=== PATIENT | female | born 1940 | race Caucasian/White ===

== ENCOUNTER 2023-09-13 11:17 | Outpatient (AMB) | payer MEDICARE, SELFPAY ==
--- NOTE | 2023-09-13 11:18 | A.OFFVISPN_ITS ---
Intake Intake Visit Reasons: breathing concerns Allergies No Known Allergies Allergy (Verified 05/05/21 18:06) [facility] Medical History (Updated 05/05/21 @ 18:08 by Jenelle Callejas MD) Hypovitaminosis D COPD (chronic obstructive pulmonary disease) Anxiety Surgical History History of cholecystectomy Family History Mother No problems noted. Father No problems noted. Social History Housing: Apartment Alcohol intake: never Patient Tobacco Use Status: Never used Tobacco Tobacco use type: Cigarette e-Cigarette/Vaping Use: Never Used Second Hand Smoke Exposure: No service: No Current occupational status: disabled Coding
--- NOTE | 2023-09-13 11:19 | MHC.PC.OV ---
Intake Visit Reasons: breathing concerns Intake Note: Telehealth appt for medication review, breathing concerns Director Regulatory Affairs Required: No Accompanied by: Self / Same As Patient Allergies No Known Allergies Allergy (Verified 09/13/23 11:21) Medication List - Last Reconciled 09/13/23 by Jenelle Callejas MD albuterol sulfate 90 mcg/actuation (Ventolin HFA) 2 puffs PO Q6H PRN 30 days albuterol sulfate 90 mcg/actuation 1 inh inhalation QID 30 days NS cholecalciferol (vitamin D3) 25 mcg PO DAILY 90 days citalopram 10 mg PO DAILY 2 months fluticasone furoate-vilanterol 100-25 mcg/dose (Breo Ellipta) 1 ea PO DAILY Tobacco use date assessed: 09/13/23 Fall risk assessment: No Falls in past year Last assessed Fall Risk: 09/13/23 Dental Screening Dental Screen Date: 09/13/23 Did you have a dental visit in the last 12 months?: No Did you have a dental problem in the last 6 months where you did not have access to dental care?: No Was dental information given to patient?: Patient declined HPI HPI Comments History of Present Illness Details This is a 89-year-old female with COPD, anxiety and low vitamin-D that has telehealth visit by phone for follow-up on her conditions. COPD has been stable and use rescue inhaler 1 to 2 times a month. Anxiety well controlled with citalopram. Vitamin-D supplements for low vitamin-D. No chest pain or shortness of breath. [facility] Medical History Hypovitaminosis D COPD (chronic obstructive pulmonary disease) Anxiety Surgical History History of cholecystectomy Family History Mother No problems noted. Father No problems noted. Social History Housing: Apartment Alcohol intake: never Patient Tobacco Use Status: Never used Tobacco Tobacco use type: Cigarette e-Cigarette/Vaping Use: Never Used Second Hand Smoke Exposure: No service: No Current occupational status: disabled Cognitive needs: Yes Hearing needs: No Vision needs: No Questionnaire PHQ-9 Over the last 2 weeks, how often have you been bothered by any of the following problems? 1. Little interest or pleasure in doing things: not at all 2. Feeling down, depressed, or hopeless: not at all 3. Trouble falling or staying asleep, or sleeping too much: not at all 4. Feeling tired or having little energy: not at all 5. Poor appetite or overeating: not at all 6. Feeling bad about yourself - or that you are a failure or have let yourself or your family down: not at all 7. Trouble concentrating on things, such as reading the newspaper or watching television: not at all 8. Moving or speaking so slowly that other people could have noticed. Or the opposite - being so fidgety or restless that you have been moving around a lot more than usual: not at all 9. Thoughts that you would be better off or of hurting yourself in some way: not at all Total score: 0 Depression Screening Interpretation: Negative Depression Screening Done: Yes 84125 - PHQ-9 Billing: Yes Source: Developed by Drs. Fermin James, Naz Pena, Bud Mittal and colleagues, with an educational sarbjit from [employer]. Thrive Questionnaire Date Thrive assessed: 09/13/23 I am a: Patient What is your living situation today?: I have a steady place to live Within the past 12 months, did the food you bought not last and you didn't have the money to get more?: Never true Within the past 12 months, did you worry whether your food would run out before you got money to buy more?: Never true Do you have trouble paying for medicines?: No Do you have trouble getting transportation to medical appointments?: No Do you have trouble paying your heating and electricity bill?: No Do you have trouble taking care of your child, family member or friend?: No Do you have trouble with day-to-day activities such as bathing, preparing meals, shopping, managing finances, etc.?: Yes Are you currently unemployed and looking for a job?: No Are you interested in more education?: No Please select the resources that you would like help with: None Currently or been in a relationship where the following occur: no concerns reported AUDIT C Alcohol Use Questionnaire (AUDIT-C) 1. How often do you have a drink containing alcohol?: Never Total Score: 0 FRANCISCO-7 AMB Questionnaire FRANCISCO-7 Date FRANCISCO - 7 assessed: 09/13/23 Feeling nervous, anxious, or on edge: 0 = Not at all Not being able to stop or control worryin = Not at all Worrying too much about different things: 0 = Not at all Trouble relaxin = Not at all Being so restless that it is hard to sit still: 0 = Not at all Becoming easily annoyed or irritable: 0 = Not at all Feeling afraid as if something awful might happen: 0 = Not at all Total FRANCISCO-7 score (0-4 normal; 5-9 mild; 10-14 moderate; 15-21 severe): 0 Source: Developed by Drs. Fermin James, Naz Pena, Bud Mittal and colleagues, with an educational sarbjit from [employer]. FRANCISCO-7 Assessment Billing FRANCISCO-7 Assessment Tool: FRANCISCO-7 Assessment 76228 Review of Systems Const All systems reviewed & are unremarkable except as noted in HPI and below Eyes Reports no additional complaints, Denies change in vision and Denies other visual disturbances Card Denies chest pain at rest, Denies chest pain with activity, Denies edema, Denies irregular heart rhythm, Denies claudication, Denies dyspnea, Denies dyspnea on exertion, Denies orthopnea, Denies paroxysmal nocturnal dyspnea and Denies slow heart rate Resp Denies cough, Denies dyspnea and Denies dyspnea on exertion GI Denies abdominal pain, Denies change in bowel habits, Denies excessive flatus, Denies nausea and Denies vomiting Denies urinary incontinence, Denies urinary hesitancy and Denies urinary urgency Musc Denies abnormal gait, Denies atrophy, Denies deformity and Denies limited range of motion Skin/Breast Denies bleeding lesions, Denies changing lesions and Denies rash Neuro Denies abnormal gait and Denies lack of coordination Physical exam (Primary Care) Tobacco/Smoking Status: Tobacco use Status Tobacco use date assessed 09/13/23 09/13/23 11:21 Patient Tobacco Use Status Never used Tobacco 09/13/23 11:21 Tobacco use type Cigarette 09/13/23 11:21 e-Cigarette/Vaping Use Never Used 09/13/23 11:21 PHQ-9: PHQ-9 Score PHQ-9: Total score 0 09/13/23 11:24 Depression Screening Interpretation: Negative Thrive Assessment: Date of Thrive Assessment Date Thrive assessed 09/13/23 09/13/23 11:21 Currently or been in a relationship where the following occur: no concerns reported Telehealth Telehealth Location of provider rendering services: practice address Location of patient: address on file Patient Identification confirmed using: Name, : Yes Telehealth method: voice only Patient verbally consented to treatment: Yes Patient verbally consented to billing insurance company: Yes Patient informed of any privacy concerns related to visit: Yes Minutes spent on Phone/Video with Pt.: 15 Assessment and Plan Assessment & Plan (1) COPD (chronic obstructive pulmonary disease): Code(s): J44.9 - Chronic obstructive pulmonary disease, unspecified Qualifiers: COPD type: unspecified COPD Qualified Code(s): J44.9 - Chronic obstructive pulmonary disease, unspecified Plan: Continue longstanding inhaler. Use rescue inhaler as needed. (2) Hypovitaminosis D: Code(s): E55.9 - Vitamin D deficiency, unspecified Plan: Continue vitamin-D supplement (3) Anxiety: Code(s): F41.9 - Anxiety disorder, unspecified Plan: Continue citalopram. Coding Level of Care Code Tele Est Pt Level 3 (49606) Diagnoses Chronic obstructive pulmonary disease, unspecified COPD type J44.9 COPD type: unspecified COPD Hypovitaminosis D E55.9 Anxiety F41.9 Additional Codes FRANCISCO-7 Assessment Billing - FRANCISCO-7 Assessment Tool: FRANCISCO-7 Assessment 81129 ([id number]) Time Spent (min) 15
== END 2023-09-13 16:03 | disposition home or self-care (01) ==
LOC: HO.HMGH 11:17
PROVIDERS: PCP Internal Medicine; Visit Provider Internal Medicine
DX: J44.9 Chronic obstructive pulmonary disease, unspecified (principal); E55.9 Vitamin D deficiency, unspecified; F41.9 Anxiety disorder, unspecified
CPT/HCPCS: 99442

== ENCOUNTER 2024-12-18 14:16 | Inpatient (IN) | payer MEDICARE, SELFPAY ==
--- NOTE | ~2024-12-18 | CT_ITS ---
CLINICAL HISTORY: mental satus changes CT head without contrast Comparison: None Findings: No intra-axial mass, midline shift, hydrocephalus, or acute hemorrhage. Extensive low attenuation in the subcortical and periventricular white matter consistent with chronic small-vessel ischemic gliosis. Mild cerebral atrophy. There is no sinus or mastoid fluid. The orbits are within normal limits. No skull fracture. IMPRESSION: 1. No acute intracranial findings. This document has been electronically signed by: Rafael Langley MD on 12/18/2024 19:29:20
[2024-12-18 14:50] VITALS: BP 139/62; BP 150/70; PULSE 80; PULSE 85; RESP 16; TEMP 36.5; O2SAT 95; O2SAT 98; BMI 29.3
[2024-12-18 15:12] VITALS: BP 144/63; PULSE 80; RESP 16; TEMP 36.6; O2SAT 97
--- NOTE | 2024-12-18 15:16 | ED_ITS ---
HPI - Altered Mental Status General Chief Complaint: Altered Mental Status Stated Complaint: visual hallucinations, poor appetite, urine smell Time Seen by Provider: 12/18/24 15:07 Source: EMS Mode of arrival: EMS History of Present Illness HPI narrative: This is 84 years old female presented to emergency department with a chief complaint of visual hallucination, she has seen people that are laughing at her. She denies any chest pain shortness of breath fever she has a history of anxiety is COPD she lives at home by herself. complaint: other (Visual hallucination) Onset (ago): day(s) (1) Severity: moderate Consistency of symptoms: waxing and waning Context: COPD Associated symptoms: denies other symptoms Related Data Previous Rx's ?Medication ?Instructions ?Recorded albuterol sulfate 90 mcg/actuation 1 inh inhalation QID 30 days #8.5 10/13/22 aerosol inhaler grams citalopram 10 mg tablet 10 mg PO DAILY 2 months #60 tabs 07/22/24 albuterol sulfate 90 mcg/actuation 2 puff PO Q6H PRN for wheezing 30 09/20/24 aerosol inhaler (Ventolin HFA) days #18 grams fluticasone furoate 100 1 ea PO DAILY #60 ea 11/23/24 mcg-vilanterol 25 mcg/dose inhalation powder (Breo Ellipta) cholecalciferol (vitamin D3) 25 25 mcg PO DAILY 90 days #90 caps 12/08/24 mcg (1,000 unit) capsule Allergies Allergy/AdvReac Type Severity Reaction Status Date / Time No Known Allergies Allergy Verified 12/18/24 14:53 Review of Systems 2 Constitutional: Constitutional: Reports no additional constitutional complaints Cardiovascular: Cardiovascular: Reports no additional cardiovascular complaints Musculoskeletal: Musculoskeletal: Reports no additional musculoskeletal complaints [facility] Past Medical History Attestation statement: The following information was validated with the patient. [facility] Narrative: COPD/anxiety Medical History Hypovitaminosis D COPD (chronic obstructive pulmonary disease) Anxiety Surgical History History of cholecystectomy Family History Family History Mother No problems noted. Father No problems noted. Social History Social History Housing: Apartment Alcohol intake: never Patient Tobacco Use Status: Never used Tobacco Tobacco use type: Cigarette Smoked in Last 30 Days: No e-Cigarette/Vaping Use: Never Used Second Hand Smoke Exposure: No Use of substances other than those prescribed or required for medical reasons: No Advance Directives: No Advance Directives Information Provided: Yes Do you have a plan to hurt others: No Plan service: No Current occupational status: disabled Cognitive needs: Yes Hearing needs: No Vision needs: No Physical Exam ED Vital Signs: Vital Signs - 24 hr 12/18/24 14:50 12/18/24 15:12 Temperature 97.7 F 97.9 F Pulse Rate 85 80 Respiratory Rate 16 16 Blood Pressure 139/62 144/63 H Pulse Oximetry 95 97 Oxygen Delivery Method Room Air Room Air BMI result Body Mass Index 29.3 On physical exam she looks well she is not toxic-appearing Const General: cooperative and comfortable Nutritional Appearance: overweight Orientation/consciousness: patient oriented x3 HENMT Head: Yes normal to inspection General nose exam: Normal external nose present Face and sinus: Yes normal facial exam Neck Neck: Yes normal visual inspection Chest Chest palpation & inspection: normal inspection of the chest Resp Effort & Inspection: normal respiratory effort Auscultation: clear to auscultation bilaterally Cardio Jugular venous distension: no JVD Rate: regular rate GI Other: Abdomen is obese no guarding no rebound General: Yes no CVA tenderness Back/Spine/Pelvis Back: no CVA tenderness Neuro General: patient oriented x3 Cranial nerves: Yes CN's II-XII intact bilaterally Course Reevaluation(s) Reevaluation #1: work up pending signed out to Dr Villela UA ct head pending,I am off shift now Time: 16:58 Medical Decision Making Medical Decision Making MDM Narrative: Patient is here with visual hallucination broad the differential diagnosis including urinary tract infection psychosis we will get labs UA head ct Differential Diagnosis Differential Diagnoses: The differential diagnosis associated with the presentation includes UTI/CVA/psychosis Admission/Observation Consideration of admission/observation: Escalation of care including admission/observation considered Lab Data 12/18/24 15:35 12/18/24 15:35 Labs: Lab Results 12/18/24 Range/Units 15:35 WBC 16.5 H (4.8-10.8) X10*3/uL RBC 4.62 (4.20-5.50) X10*6/uL Hgb 13.9 (12.0-16.0) g/dl Hct 41.2 (37.0-47.0) % MCV 89.2 (80.0-98.0) fL MCH 30.1 (27.0-33.0) pg MCHC 33.7 (31.0-35.0) g/dl RDW 14.1 (11.0-16.0) % Plt Count 341 (160-400) X10*3/uL MPV 10.2 (9.4-12.3) fL Immature Gran % (Auto) 0.5 H (0.0-0.4) % Neut % (Auto) 88.9 H (45-73) % Lymph % (Auto) 4.6 L (20-40) % [place] % (Auto) 5.4 (2-11) % Eos % (Auto) 0.1 (0-4) % Baso % (Auto) 0.5 (0-2) % Lymph # (Auto) 0.8 L (1.2-4.9) X10*3/uL [place] # (Auto) 0.9 (0.1-1.2) X10*3/uL Eos # (Auto) 0.0 (0.0-0.4) X10*3/uL Baso # (Auto) 0.1 (0.0-0.2) X10*3/uL Abs Immat Gran (auto) 0.09 H (0.00-0.03) X10*3/uL Absolute Neuts (auto) 14.6 H (2.0-8.3) x10*3/uL Absolute Nucleated RBC 0.000 (0.0-0.012) X10*3/uL Nucleated RBC % (auto) 0.0 (0.0-0.2) /100WBC Sodium 135 (135-145) mmol/L Potassium 4.0 (3.3-5.1) mmol/L Chloride 102 (96-108) mmol/L Carbon Dioxide 20 L (22-29) mmol/L Anion Gap 17 (12-20) BUN 27 H (9-16) mg/dL Creatinine 0.83 (0.5-1.4) mg/dL Estim Creat Clear Calc 40.9 Estimated GFR > 60 Random Glucose 83 (60-115) mg/dL Calcium 9.5 (8.4-10.2) mg/dL Total Bilirubin 0.7 (0.0-1.0) mg/dL AST 37 H (5-31) U/L ALT 9 (0-31) U/L Total Protein 8.8 H (6.5-8.0) g/dL Albumin 3.9 (3.5-5.0) g/dL Discharge Plan Discharge Clinical Impression: Hallucination, visual Patient Disposition: Still a Patient Prescriptions: No Action albuterol sulfate 90 mcg/actuation HFA aerosol inhaler 1 inh inhalation QID 30 Days Qty: 8.5 2RF citalopram 10 mg tablet 10 mg PO DAILY 60 Days Qty: 60 0RF albuterol sulfate [Ventolin HFA] 90 mcg/actuation HFA aerosol inhaler 2 puff PO Q6H PRN (Reason: for wheezing) 30 Days Qty: 18 1RF fluticasone furoate-vilanterol [Breo Ellipta] 100-25 mcg/dose blister with device 1 ea PO DAILY Qty: 60 3RF cholecalciferol (vitamin D3) 25 mcg (1,000 unit) capsule 25 mcg PO DAILY 90 Days Qty: 90 1RF Print Language: Senegalese
[2024-12-18 15:42] LABS: MANUAL DIFF FLAG NO
[2024-12-18 15:45] LABS: Basophils Absolute Auto 0.1 X10*3/uL (0.0-0.2); Basophils Percent Auto 0.5 % (0-2); Eosinophils Percent Auto 0.1 % (0-4); Hematocrit 41.2 % (37.0-47.0); Hemoglobin 13.9 g/dl (12.0-16.0); Imm Gran Abs Auto 0.09 X10*3/uL (0.00-0.03); Imm Gran Pct Auto 0.5 % (0.0-0.4); Lymphocytes Absolute Auto 0.8 X10*3/uL (1.2-4.9); Lymphocytes Percent Auto 4.6 % (20-40); Mean Corpuscular HGB Conc 33.7 g/dl (31.0-35.0); Mean Corpuscular Hemoglobin 30.1 pg (27.0-33.0); Mean Corpuscular Volume 89.2 fL (80.0-98.0); Mean Platelet Volume 10.2 fL (9.4-12.3); Monocytes Absolute Auto 0.9 X10*3/uL (0.1-1.2); Monocytes Percent Auto 5.4 % (2-11); Neutrophils Absolute Auto 14.6 x10*3/uL (2.0-8.3); Neutrophils Percent Auto 88.9 % (45-73); Platelet Count 341 X10*3/uL (160-400); Red Blood Count 4.62 X10*6/uL (4.20-5.50); Red Cell Distribution Width 14.1 % (11.0-16.0); White Blood Count 16.5 X10*3/uL (4.8-10.8)
[2024-12-18 15:59] LABS: Alanine Aminotransferase 9 U/L (0-31); Albumin Level 3.9 g/dL (3.5-5.0); Anion Gap 17 (12-20); Aspartate Amino Transferase 37 U/L (5-31); Bilirubin Total 0.7 mg/dL (0.0-1.0); Blood Urea Nitrogen 27 mg/dL (9-16); Calcium 9.5 mg/dL (8.4-10.2); Carbon Dioxide 20 mmol/L (22-29); Chloride 102 mmol/L (96-108); Creatinine Clr Calc Pharmacy 40.9; Estimated Glomerular Filt Rate > 60; Glucose Random 83 mg/dL (60-115); Sodium 135 mmol/L (135-145); Total Protein 8.8 g/dL (6.5-8.0)
[2024-12-18] MEDS: 0.9 % Sodium Chloride 1,000 ML 999 ML IVCONT (17:29)
[2024-12-18 17:31] LABS: Alkaline Phosphatase 75 U/L (39-117)
[2024-12-18 17:43] LABS: TSH reflex Free T4 1.82 uIU/mL (0.32-4.0)
[2024-12-18] MEDS: HaloperidoL 5 MG TABLET PO (18:29)
[2024-12-18] MEDS: diphenhydrAMINE HCL 25 MG CAPSULE 50 MG PO (18:29)
[2024-12-18 18:32] VITALS: BP 162/53; PULSE 90; RESP 16; TEMP 36.6; O2SAT 93
--- NOTE | 2024-12-18 18:33 | PC.NURSE ---
22G in LAC pt pulled out - got approx 200 cc IVF. MD Manohar perezware
--- NOTE | 2024-12-18 19:35 | PC.NURSE ---
Pts daughter, Jacki, called for an update. Update provided. Jacki can be reached at [phone]. Jacki resides in [place] and is en route to meet pt at the hospital. ETA approximately 10-15 hours. Jacki states pt lives alone at home and is confused at times. States pt has not left her home in the last 6 to 7 years after her and that the pt has not seen a medical provider in many years. Reports pt may have a diagnosis of COPD and that pt wheezes a lot, has an inhaler, Jacki is not sure how pt obtained the inhaler at home. Jacki states pt receives help at home once a week and that the neighbor usually checks in on her but then the neighbor was not able to contact pt and [facility] where pt was then found on the floor at her home and EMS was called. Jacki also states pt has been having visual hallucinations stating that other people are living in her apartment. Reports pt sounded like she may have had a stoke a few months ago but pt never seeked medical attention.
[2024-12-18 20:02] VITALS: BP 140/51; PULSE 96; RESP 16; TEMP 36.6; O2SAT 94
--- NOTE | 2024-12-18 21:36 | PC.NURSE ---
Purewick in place.
[2024-12-18 22:27] VITALS: BP 100/40; PULSE 72; RESP 16; TEMP 37.2; O2SAT 98
--- NOTE | 2024-12-19 | ECG_ITS ---
Test Reason : qtc check Blood Pressure : */* mmHG Vent. Rate : 96 BPM Atrial Rate : 96 BPM P-R Int : 144 ms QRS Dur : 78 ms QT Int : 360 ms P-R-T Axes : 76 53 17 degrees QTcB Int : 454 ms Normal sinus rhythm Normal ECG No previous ECGs available Referred By: Kavitha Ramírez Electronically Signed By: JIMENA CORBIN MD
[2024-12-19 01:20] LABS: Appearance Urine Clear; Color Urine Dark Yellow; Glucose Urine UA Negative (Negative); Leukocyte Esterase Urine Negative (Negative); Nitrite Urine Negative (Negative); PH 5.5 (5.0-9.0); Specific Gravity - Urine 1.025 (1.005-1.025); UMIC TRIGGER UACC YES; Urine Blood Large (3+) (Negative); Urine Ketones >=160 mg/dL (Negative); Urine Protein 30 (1+) mg/dL (Neg-Trace)
[2024-12-19 01:28] LABS: Bacteria Urine None Seen (None Seen); Granular Casts Urine Present; RBC Urine >20 /HPF (0-2); WBC Urine 0-5 /HPF (0-5)
[2024-12-19 01:29] VITALS: BP 99/48; PULSE 78; RESP 16; TEMP 37; O2SAT 95
[2024-12-19 05:14] VITALS: BP 135/49; PULSE 79; RESP 16; TEMP 36.7; O2SAT 97
[2024-12-19 08:15] VITALS: RESP 14; TEMP 37.1; O2SAT 96
--- NOTE | 2024-12-19 09:21 | MHC.CARE ---
Collateral with patient's daughter, Jacki [phone]. Jacki is currently en route from [place] to [place]. She shares that patient has no hx of MH treatment at all, no hx of VH, AH until six months ago. Jacki reports that pt began periodically calling to share that there were children or a man in her home about 6 months ago. Jacki reports that patient has not ever seemed acutely distressed by seeing people in her home, and when Jacki, who was not certain these were hallucinations at first, encouraged patient to call the police, patient would say no, that she was sure the people/ person would leave soon on their own. She states that these are not daily calls. Jacki shares that patient called her, before she fell, telling her that there was a little boy hanging on her. She reports patient acts as though this is normal, and Jacki suspects patient likely has dementia. Jacki additionally shares that patient is not always able to sleep. She is not certain about her appetite, though reports that she will order her a pizza at times from [place] to [place]. She reports there is a lawn care specialist who comes to her mother's apartment once a week. And the neighbor below her checks in on her, though he is reported to be old himself. She reports that patient does not leave the home, to Jacki's knowledge. She also does not believe that patient has seen a doctor in years. She reports that patient was born in [place] and moved to [place] when Jacki was young. She reports that patient worked at [employer] for years. States she was very social but now just wants to be alone. Patient has no current HCP, however Jacki intends to take care of this when she arrives.
--- NOTE | 2024-12-19 10:28 | MHC.EDTECH ---
This pct attempted to get vitals on this patient, The patient exprssed to me she is tired and doesnt want vitals and also exprssed to me that her back was hurting her so i offered to help get her more comfortable but she told me to get out of her room, RN Aware
[2024-12-19 12:15] VITALS: BP 142/55; PULSE 77; RESP 17; TEMP 36.4; O2SAT 95
--- NOTE | 2024-12-19 13:31 | PHA.MEDREC ---
Addendum entered by Roxanne Crook RPh 12/19/24 14:02: Reviewed by [facility] Original Note: Pharmacy Consult ? Medication Reconciliation Pharmacy has completed the medication reconciliation. Spoke to patient and daughter (Jacki) at bedside to confirm med list. Daughter confirmed Breo inhaler and Albuterol . Patient states she takes Citalopram 10 mg only as needed for anxiety , last fill date was 07/22/24 for 30 day supply.
[2024-12-19 14:36] VITALS: RESP 17
[2024-12-19 18:20] LABS: Alanine Aminotransferase 15 U/L (0-31); Albumin Level 3.7 g/dL (3.5-5.0); Alkaline Phosphatase 74 U/L (39-117); Anion Gap 18 (12-20); Aspartate Amino Transferase 43 U/L (5-31); Bilirubin Total 0.9 mg/dL (0.0-1.0); Blood Urea Nitrogen 28 mg/dL (9-16); Calcium 9.1 mg/dL (8.4-10.2); Carbon Dioxide 21 mmol/L (22-29); Chloride 103 mmol/L (96-108); Creatinine Clr Calc Pharmacy 38.5; Estimated Glomerular Filt Rate > 60; Glucose Random 77 mg/dL (60-115); Potassium 4.1 mmol/L (3.3-5.1); Sodium 138 mmol/L (135-145); Total Protein 7.9 g/dL (6.5-8.0)
[2024-12-19 20:00] VITALS: BP 153/73; PULSE 92; RESP 18; TEMP 36.8; O2SAT 97
[2024-12-19] MEDS: Nystatin Powder 15 GM BOTTLE 1 APPL TOPICAL (21:57)
--- NOTE | 2024-12-19 22:24 | PC.NURSE ---
patient arrived on unit 12/19/24@1630. she is alert to guillerm[place], place and time, she is very pleasant, confused and has poor motor skills, gross and fine, she is cooperative but declined to sign all but one legal paper d/t frustration of her motor skills, she is incontinent of stool and urine, 2-person assist, wheelchair for mobility, she has new onset confusion with a psych diagnosis of Anxiety d/o, major Neurocognitive d/o, Medical: COPD, VS on admission 159/73, HR 92, SAO2 97%@RA, 3 hours later 160/70, HR 60, DOC aware, patient wears dentures but left them at home, Patient ordered breakfast and apears to be sleeping at this time but daughter reports she has poor appitite at times and can go days without sleep
[2024-12-19 23:52] VITALS: BMI 29.3
[2024-12-20 00:31] LABS: CDiff Gene PCR NEGATIVE (Negative)
[2024-12-20 08:15] VITALS: BP 145/63; PULSE 102; RESP 18; TEMP 36.4; O2SAT 93
[2024-12-20] MEDS: Nystatin Powder 15 GM BOTTLE 1 APPL TOPICAL ×2 (08:57→21:19)
[2024-12-20] MEDS: Cholecalciferol (Vitamin D3) 25 MCG TABLET PO (08:57)
[2024-12-20] MEDS: Fluticasone/Vilanterol 100/25 BLST.W.DEV 1 PUFF INHALE (08:57)
--- NOTE | 2024-12-20 09:26 | HO.PSYADMNOT ---
HPI Date of Service: 12/20/24 Chief Complaint: visual hallucinations, poor appetite, urine smell Sources of Information: patient interviewed, chart reviewed and crisis/core team assessment reviewed HPI Subjective Notes: [place] Warning and Section 12B Healthcare Proxy: Yes Narrative: Mrs. Ellis is an 84 year-old woman who was brought via EMS after 911 was called by her neighbor as pt had not answered the door or the phone and she was found on the floor. Pt apparently has been reporting that she is seeing a man and at times children. She does not go to her PCP regularly. She lives alone that there was concern in terms of her ability to care for herself. In the ED, WBC was elevated. No overt signs of infection. Serum bicarb was low 20, BUN elevated 27 with a normal creatinine. AST elevated 37. TSH was normal. Urinalysis was positive for protein, RBCs, negative for nitrates and leukocyte esterase. Urine microscopic revealed greater than 20 RBCs, 0-5 WBCs, 3-5 squamous cells with no bacteria. On the unit, pt presents as cooperative, slightly irritable. She is not able to remember exact events that led to her coming to the hospital and thus confabulates. She reports her daughter brought her to the hospital, when daughter was in [place] and just came few days ago. She reports she had seen a man and children at her house and that she had asked them to leave. She denies seeing them here on the unit. She reports she is mostly at home and has not left since beginning of the pandemic. She denies symptoms of depression or anxiety. She denies anxious mood. No overt psychosis or delusional content noted. Past Psychiatric History: Inpt: none OP: none Past medication trials: celexa, but unclear how often she was actually taking it Medical Evaluation Reviewed: Yes [facility] Medical History Hypovitaminosis D COPD (chronic obstructive pulmonary disease) Anxiety Surgical History History of cholecystectomy Family History: none Social History: Pt has 2 sons and one daughter. She is . Second few years ago. Substance History: none Trauma History: none disclosed Diagnostics Vital Signs (24Hr): Vital Signs - 24 hr 12/19/24 12:15 12/19/24 14:36 12/19/24 20:00 Temperature 97.6 F 98.3 F Pulse Rate 77 92 Respiratory Rate 17 17 18 Blood Pressure 142/55 H 153/73 H Pulse Oximetry 95 97 Oxygen Delivery Method Room Air Room Air 12/20/24 08:15 Temperature 97.5 F Pulse Rate 102 H Respiratory Rate 18 Blood Pressure 145/63 H Pulse Oximetry 93 Oxygen Delivery Method Room Air BMI result Body Mass Index 29.3 Labs 12/21/24 14:14 12/19/24 18:02 Labs: Laboratory Results - last 48 hr 12/18/24 12/19/24 12/19/24 15:35 01:14 18:02 WBC 16.5 H RBC 4.62 Hgb 13.9 Hct 41.2 MCV 89.2 MCH 30.1 MCHC 33.7 RDW 14.1 Plt Count 341 MPV 10.2 Immature Gran % (Auto) 0.5 H Neut % (Auto) 88.9 H Lymph % (Auto) 4.6 L [place] % (Auto) 5.4 Eos % (Auto) 0.1 Baso % (Auto) 0.5 Lymph # (Auto) 0.8 L [place] # (Auto) 0.9 Eos # (Auto) 0.0 Baso # (Auto) 0.1 Abs Immat Gran (auto) 0.09 H Absolute Neuts (auto) 14.6 H Absolute Nucleated RBC 0.000 Nucleated RBC % (auto) 0.0 Sodium 135 138 Potassium 4.0 4.1 Chloride 102 103 Carbon Dioxide 20 L 21 L Anion Gap 17 18 BUN 27 H 28 H Creatinine 0.83 0.88 Estim Creat Clear Calc 40.9 38.5 Estimated GFR > 60 > 60 Random Glucose 83 77 Calcium 9.5 9.1 Total Bilirubin 0.7 0.9 AST 37 H 43 H ALT 9 15 Alkaline Phosphatase 75 74 Total Protein 8.8 H 7.9 Albumin 3.9 3.7 TSH 1.82 Urine Color Dark Yellow Urine Appearance Clear Urine pH 5.5 Ur Specific [place] 1.025 Urine Protein 30 (1+) H Urine Glucose (UA) Negative Urine Ketones >=160 Urine Blood Large (3+) H Urine Nitrite Negative Ur Leukocyte Esterase Negative Urine RBC >20 H Urine WBC 0-5 Ur Squamous Epith Cells 3-5 Urine Bacteria None Seen Hyaline Casts 6-10 Granular Casts Present C. difficile Tox B Gene 12/19/24 21:00 WBC RBC Hgb Hct MCV MCH MCHC RDW Plt Count MPV Immature Gran % (Auto) Neut % (Auto) Lymph % (Auto) Heard % (Auto) Eos % (Auto) Baso % (Auto) Lymph # (Auto) Heard # (Auto) Eos # (Auto) Baso # (Auto) Abs Immat Gran (auto) Absolute Neuts (auto) Absolute Nucleated RBC Nucleated RBC % (auto) Sodium Potassium Chloride Carbon Dioxide Anion Gap BUN Creatinine Estim Creat Clear Calc Estimated GFR Random Glucose Calcium Total Bilirubin AST ALT Alkaline Phosphatase Total Protein Albumin TSH Urine Color Urine Appearance Urine pH Ur Specific [place] Urine Protein Urine Glucose (UA) Urine Ketones Urine Blood Urine Nitrite Ur Leukocyte Esterase Urine RBC Urine WBC Ur Squamous Epith Cells Urine Bacteria Hyaline Casts Granular Casts C. difficile Tox B Gene NEGATIVE Meds/Allergies Meds Home Medications ?Medication ?Instructions ?Recorded ?Confirmed ?Type citalopram 10 mg tablet 10 mg PO DAILY PRN Anxiety 12/19/24 12/19/24 History fluticasone furoate 100 1 ea inhalation DAILY 12/19/24 12/19/24 History mcg-vilanterol 25 mcg/dose inhalation powder (Breo Ellipta) Allergies Allergies Allergy/AdvReac Type Severity Reaction Status Date / Time No Known Allergies Allergy Verified 12/18/24 14:53 Mental Status Exam Mental Status Exam Narrative: Appearance: wearing casual clothing, good hygiene, in NAD. Weak to walk on her own Behavior: cooperative Psychomotor: no agitation or retardation noted Speech: clear, normal rate/rhythm/volume, spontaneous TP: linear TC: wanting to go home Mood: okay Affect: congruent SI: none HI: none VH/AH: none Delusions: none Insight/judgment: poor x 2. memory/cog: alert, not to situation, confused about the month (january), knows the year. pending MOCA Assessment & Plan Assessment & Plan (1) Major neurocognitive disorder: Status: Acute Code(s): F03.90 - Unspecified dementia, unspecified severity, without behavioral disturbance, psychotic disturbance, mood disturbance, and anxiety Plan Mrs. Ellis is an 84 year-old woman who was brought to [facility] [place] [facility] due to [place]. She is not able to remember exact events leading to this admission. She has also been reporting seeing a man and children standing in her house. She denies hearing them talk. Others have not seen other people there. Pt lives alone and main concern has been her ability to care for herself. She does have a neighbor that comes and helps with groceries and picking up medications and paying bills. Pt noted to be almost blind. She does have hx of cataracts but refuses to go see cook house supervisor. She does not present with overt signs of psychosis nor delusional content. I so suspect that visual hallucinations may be related to losing sight. In terms of her cognitive, pending formal MOCA and ACL but it is clear that she does have problems with orientation and retaining information evidenced by the fact that she is not able to remember who brought her to the hospital and in what condition was she found (felt but was alert). She is confused as to why she was brought to the hospital in the first place. She does not appeared as delirious, therefore, cognitive impairments noted are related to underlying major neurocognitive disorder. PLAN 1. Admit to S1, Sect 12b, 5 minutes checks 2. consult PT- unsteady gait 3. may consider antipsychotic if she is noted to have psychosis. 4. OT- MOCA/ACL 5. aftercare planning. Patient educated on: diagnosis and medication risk/benefits Reason for continued inpatient stay Substantial Risk for: inability to function Statement Statement: I have reviewed the history and physical and performed a pertinent examination on my patient. No changes have occurred unless specified. If the History and Physical was not performed prior to admission, the Hospitalist's service will be consulted for completing the admission physical. Time Spent With Patient Time: Total time managing care of this patient today ____ minutes.
[2024-12-20 10:12] LABS: Estimated Average Glucose 97 mg/dL; Hemoglobin A1C 108.1241 umol/L; Total Hemoglobin (HGBA1C) 3515.6601 umol/L
[2024-12-20 10:54] LABS: Folate 9.3 ng/mL (> or = 4.0); Vitamin B12 900 pg/mL (200-900)
--- NOTE | 2024-12-20 14:00 | PC.NURSE ---
Jerrod texted Kavitha Ramírez to clarify if order for bladder scan order needed. Patient urinating without difficulty. Awaiting response.
[2024-12-20 15:34] VITALS: BMI 25.5
[2024-12-20 20:00] VITALS: BP 128/58; PULSE 68; RESP 18; TEMP 36.9; O2SAT 94
[2024-12-21] MEDS: traZODone HCL 50 MG TABLET PO ×2 (01:26→21:39)
[2024-12-21] MEDS: Escitalopram Oxalate 5 MG TABLET PO (01:26)
[2024-12-21 08:00] VITALS: BP 138/63; PULSE 60; RESP 18; TEMP 36.2; O2SAT 93
[2024-12-21 08:10] LABS: Cholesterol 162 mg/dL (<200); HDL Cholesterol 50 mg/dL (>40); LDL Cholesterol Calculated 97 mg/dL (<100); Triglycerides 76 mg/dL (<150)
[2024-12-21 08:25] LABS: Thyroid Stimulating Hormone 1.04 uIU/mL (0.32-4.0)
[2024-12-21] MEDS: Nystatin Powder 15 GM BOTTLE 1 APPL TOPICAL ×2 (08:54→21:05)
[2024-12-21] MEDS: Fluticasone/Vilanterol 100/25 BLST.W.DEV 1 PUFF INHALE (08:54)
[2024-12-21] MEDS: Cholecalciferol (Vitamin D3) 25 MCG TABLET PO (08:54)
[2024-12-21 09:17] VITALS: BP 128/58; PULSE 68; O2SAT 94
[2024-12-21 14:19] LABS: MANUAL DIFF FLAG NO
[2024-12-21 14:25] LABS: Basophils Absolute Auto 0.1 X10*3/uL (0.0-0.2); Basophils Percent Auto 1.3 % (0-2); Eosinophils Absolute Auto 0.4 X10*3/uL (0.0-0.4); Eosinophils Percent Auto 4.3 % (0-4); Hematocrit 35.5 % (37.0-47.0); Hemoglobin 12.1 g/dl (12.0-16.0); Imm Gran Abs Auto 0.04 X10*3/uL (0.00-0.03); Imm Gran Pct Auto 0.4 % (0.0-0.4); Lymphocytes Absolute Auto 1.1 X10*3/uL (1.2-4.9); Lymphocytes Percent Auto 11.9 % (20-40); Mean Corpuscular HGB Conc 34.1 g/dl (31.0-35.0); Mean Corpuscular Hemoglobin 29.9 pg (27.0-33.0); Mean Corpuscular Volume 87.7 fL (80.0-98.0); Mean Platelet Volume 10.1 fL (9.4-12.3); Monocytes Absolute Auto 1.1 X10*3/uL (0.1-1.2); Monocytes Percent Auto 11.5 % (2-11); Neutrophils Absolute Auto 6.5 x10*3/uL (2.0-8.3); Neutrophils Percent Auto 70.6 % (45-73); Platelet Count 303 X10*3/uL (160-400); Red Blood Count 4.05 X10*6/uL (4.20-5.50); Red Cell Distribution Width 14.4 % (11.0-16.0); White Blood Count 9.2 X10*3/uL (4.8-10.8)
[2024-12-21 20:00] VITALS: BP 151/69; PULSE 72; RESP 17; TEMP 36.1; O2SAT 95
--- NOTE | 2024-12-22 07:50 | HO.PSYCHPN ---
Subjective Subjective Date of Service: 12/21/24 Reason For Visit: visual hallucinations, poor appetite, urine smell Subjective Notes: Section 12B Healthcare Proxy: Yes Interim History: Pt slept through the night. She reports feeling well. She is eating well. No behavioral concerns. No signs of psychosis. She is still pending MOCA/ACL. As time goes by, she is more confused as to why she is here in the hospital. Discussed with daughter underlying cognitive impairments. Daughter and pt want to go back home. Collateral information gathered also from senior services- they have tried to engage patient in comprehensive assessment in the home but she declines. She does have someone who comes once a week to help with cleaning. No safety concerns in terms of wondering but she is unsteady in her feet and has frequent falls. She was seen by PT and they recommend short term rehab but pt and daughter declined. Pt also declined referral for psych, she will continue with PCP which she has not seen in 2 years. Mental Status Exam Mental Status Exam Narrative: Appearance: wearing casual clothing, good hygiene, in NAD. Weak to walk on her own Behavior: cooperative Psychomotor: no agitation or retardation noted Speech: clear, normal rate/rhythm/volume, spontaneous TP: linear TC: wanting to go home Mood: okay Affect: congruent SI: none HI: none VH/AH: none Delusions: none Insight/judgment: poor x 2. memory/cog: alert, not to situation, confused about the month (january), knows the year. pending MOCA Diagnostics Vital Signs (24Hr): Vital Signs - 24 hr 12/21/24 08:00 12/21/24 09:17 12/21/24 20:00 Temperature 97.1 F 97 F Pulse Rate 60 68 72 Respiratory Rate 18 17 Blood Pressure 138/63 128/58 L 151/69 H Pulse Oximetry 93 94 95 Oxygen Delivery Method Room Air Room Air BMI result Body Mass Index 25.5 Labs 12/21/24 14:14 12/19/24 18:02 Labs: Laboratory Results - last 48 hr 12/20/24 12/21/24 12/21/24 09:57 07:33 14:14 WBC 9.2 RBC 4.05 L Hgb 12.1 Hct 35.5 L MCV 87.7 MCH 29.9 MCHC 34.1 RDW 14.4 Plt Count 303 MPV 10.1 Immature Gran % (Auto) 0.4 Neut % (Auto) 70.6 Lymph % (Auto) 11.9 L [place] % (Auto) 11.5 H Eos % (Auto) 4.3 H Baso % (Auto) 1.3 Lymph # (Auto) 1.1 L [place] # (Auto) 1.1 Eos # (Auto) 0.4 Baso # (Auto) 0.1 Abs Immat Gran (auto) 0.04 H Absolute Neuts (auto) 6.5 Absolute Nucleated RBC 0.000 Nucleated RBC % (auto) 0.0 Estimat Average Glucose 97 Hemoglobin A1c % 5.0 Triglycerides 76 Cholesterol 162 LDL Cholesterol, Calc 97 HDL Cholesterol 50 Vitamin B12 900 Folate 9.3 TSH 1.04 Medications Medications Current Medications Acetaminophen (Acetaminophen 325 Mg Tablet) 650 mg PO Q6H PRN PRN Reason: Headache/Pain, Scale 1-10 Al Hydroxide/Mg Hydroxide (Magnesium Hydrox/Alum Hydrox 30 Ml Oral.Susp) 30 ml PO Q6H PRN PRN Reason: Heartburn/Nausea Albuterol Sulfate (Albuterol Sulfate 90 Mcg 8 Gm Inhaler) 2 puff INHALE Q6H PRN PRN Reason: for wheezing Escitalopram Oxalate (Escitalopram Oxalate 5 Mg Tablet) 5 mg PO DAILY PRN PRN Reason: Anxiety Last Admin: 12/21/24 01:26 Dose: 5 mg Fluticasone/Vilanterol (Fluticasone/Vilanterol 100/25 Blst.W.Dev) 1 puff INHALE DAILY ADRIENNE Last Admin: 12/21/24 08:54 Dose: 1 puff Magnesium Hydroxide (Milk Of Magnesia 30 Ml Oral.Susp) 30 ml PO DAILY PRN PRN Reason: Constipation Nystatin (Nystatin Powder 15 Gm Bottle) 1 appl TOPICAL BID ADRIENNE; Protocol Last Admin: 12/21/24 21:05 Dose: 1 appl Trazodone HCl (Trazodone Hcl 50 Mg Tablet) 50 mg PO BEDTIME MRX1 PRN PRN Reason: Insomnia Last Admin: 12/21/24 21:39 Dose: 50 mg Vitamin D (Cholecalciferol (Vitamin D3) 25 Mcg Tablet) 25 mcg PO DAILY ADRIENNE Last Admin: 12/21/24 08:54 Dose: 25 mcg Allergies Allergies Allergy/AdvReac Type Severity Reaction Status Date / Time No Known Allergies Allergy Verified 12/18/24 14:53 Assessment & Plan Assessment & Plan (1) Major neurocognitive disorder: Status: Acute Code(s): F03.90 - Unspecified dementia, unspecified severity, without behavioral disturbance, psychotic disturbance, mood disturbance, and anxiety Plan Mrs. Ellis is an 84 year-old woman who was brought [place] [facility] [place]. She is not able to remember exact events leading to this admission. She has also been reporting seeing a man and children standing in her house. She denies hearing them talk. Others have not seen other people there. Pt lives alone and main concern has been her ability to care for herself. She does have a neighbor that comes and helps with groceries and picking up medications and paying bills. Pt noted to be almost blind. She does have hx of cataracts but refuses to go see taper and floater. She does not present with overt signs of psychosis nor delusional content. I so suspect that visual hallucinations may be related to losing sight. In terms of her cognitive, pending formal MOCA and ACL but it is clear that she does have problems with orientation and retaining information evidenced by the fact that she is not able to remember who brought her to the hospital and in what condition was she found (felt but was alert). She is confused as to why she was brought to the hospital in the first place. She does not appeared as delirious, therefore, cognitive impairments noted are related to underlying major neurocognitive disorder. PLAN 1. Admit to S1, Sect 12b, 5 minutes checks 2. consult PT- unsteady gait 3. may consider antipsychotic if she is noted to have psychosis. 4. OT- MOCA/ACL 5. aftercare planning. Reason for continued inpatient stay Substantial Risk for: inability to function Time Spent With Patient Time: Total time managing care of this patient today ____ minutes.
[2024-12-22 07:55] VITALS: BP 178/72; PULSE 82; RESP 18; TEMP 36.8; O2SAT 96
--- NOTE | 2024-12-22 07:59 | P.DS_ITS ---
DS: Providers Provider Date of Service: 12/22/24 Date of admission: 12/19/24 15:13 Date of discharge: 12/22/24 Primary care physician: Jenelle Callejas MD DS: Diagnosis Discharge Diagnosis (1) Major neurocognitive disorder: Status: Acute DS: Medications Discharge Medications Home Medications: Home Medications ?Medication ?Instructions ?Recorded ?Confirmed citalopram 10 mg tablet 10 mg PO DAILY PRN Anxiety 12/19/24 12/19/24 fluticasone furoate 100 1 ea inhalation DAILY 12/19/24 12/19/24 mcg-vilanterol 25 mcg/dose inhalation powder (Breo Ellipta) Previous Rx's ?Medication ?Instructions ?Recorded albuterol sulfate 90 mcg/actuation 2 puff PO Q6H PRN for wheezing 30 09/20/24 aerosol inhaler (Ventolin HFA) days #18 grams cholecalciferol (vitamin D3) 25 25 mcg PO DAILY 90 days #90 caps 12/08/24 mcg (1,000 unit) capsule Mental Status Exam Mental Status Exam Narrative: Appearance: wearing casual clothing, good hygiene, in NAD. Weak to walk on her own Behavior: cooperative Psychomotor: no agitation or retardation noted Speech: clear, normal rate/rhythm/volume, spontaneous TP: linear TC: wanting to go home Mood: okay Affect: congruent SI: none HI: none VH/AH: none Delusions: none Insight/judgment: impaired x 2. memory/cog: alert, not to situation, confused about the month (january), knows the year. unable to complete MOCA due to vision loss. ACL 3.4 severe cognitive impairment. Data Data Completed and Pending Completed studies during hospitalization [Text1]: 12/18/24 12/19/24 12/19/24 15:35 01:14 18:02 WBC 16.5 H RBC 4.62 Hgb 13.9 Hct 41.2 MCV 89.2 MCH 30.1 MCHC 33.7 RDW 14.1 Plt Count 341 MPV 10.2 Immature Gran % (Auto) 0.5 H Neut % (Auto) 88.9 H Lymph % (Auto) 4.6 L [place] % (Auto) 5.4 Eos % (Auto) 0.1 Baso % (Auto) 0.5 Lymph # (Auto) 0.8 L [place] # (Auto) 0.9 Eos # (Auto) 0.0 Baso # (Auto) 0.1 Abs Immat Gran (auto) 0.09 H Absolute Neuts (auto) 14.6 H Absolute Nucleated RBC 0.000 Nucleated RBC % (auto) 0.0 Sodium 135 138 Potassium 4.0 4.1 Chloride 102 103 Carbon Dioxide 20 L 21 L Anion Gap 17 18 BUN 27 H 28 H Creatinine 0.83 0.88 Estim Creat Clear Calc 40.9 38.5 Estimated GFR > 60 > 60 Random Glucose 83 77 Estimat Average Glucose Hemoglobin A1c % Calcium 9.5 9.1 Total Bilirubin 0.7 0.9 AST 37 H 43 H ALT 9 15 Alkaline Phosphatase 75 74 Total Protein 8.8 H 7.9 Albumin 3.9 3.7 Triglycerides Cholesterol LDL Cholesterol, Calc HDL Cholesterol Vitamin B12 Folate TSH 1.82 Urine Color Dark Yellow Urine Appearance Clear Urine pH 5.5 Ur Specific [place] 1.025 Urine Protein 30 (1+) H Urine Glucose (UA) Negative Urine Ketones >=160 Urine Blood Large (3+) H Urine Nitrite Negative Ur Leukocyte Esterase Negative Urine RBC >20 H Urine WBC 0-5 Ur Squamous Epith Cells 3-5 Urine Bacteria None Seen Hyaline Casts 6-10 Granular Casts Present C. difficile Tox B Gene 12/19/24 12/20/24 12/21/24 21:00 09:57 07:33 WBC RBC Hgb Hct MCV MCH MCHC RDW Plt Count MPV Immature Gran % (Auto) Neut % (Auto) Lymph % (Auto) [place] % (Auto) Eos % (Auto) Baso % (Auto) Lymph # (Auto) [place] # (Auto) Eos # (Auto) Baso # (Auto) Abs Immat Gran (auto) Absolute Neuts (auto) Absolute Nucleated RBC Nucleated RBC % (auto) Sodium Potassium Chloride Carbon Dioxide Anion Gap BUN Creatinine Estim Creat Clear Calc Estimated GFR Random Glucose Estimat Average Glucose 97 Hemoglobin A1c % 5.0 Calcium Total Bilirubin AST ALT Alkaline Phosphatase Total Protein Albumin Triglycerides 76 Cholesterol 162 LDL Cholesterol, Calc 97 HDL Cholesterol 50 Vitamin B12 900 Folate 9.3 TSH 1.04 Urine Color Urine Appearance Urine pH Ur Specific [place] Urine Protein Urine Glucose (UA) Urine Ketones Urine Blood Urine Nitrite Ur Leukocyte Esterase Urine RBC Urine WBC Ur Squamous Epith Cells Urine Bacteria Hyaline Casts Granular Casts C. difficile Tox B Gene NEGATIVE 12/21/24 14:14 WBC 9.2 RBC 4.05 L Hgb 12.1 Hct 35.5 L MCV 87.7 MCH 29.9 MCHC 34.1 RDW 14.4 Plt Count 303 MPV 10.1 Immature Gran % (Auto) 0.4 Neut % (Auto) 70.6 Lymph % (Auto) 11.9 L [place] % (Auto) 11.5 H Eos % (Auto) 4.3 H Baso % (Auto) 1.3 Lymph # (Auto) 1.1 L [place] # (Auto) 1.1 Eos # (Auto) 0.4 Baso # (Auto) 0.1 Abs Immat Gran (auto) 0.04 H Absolute Neuts (auto) 6.5 Absolute Nucleated RBC 0.000 Nucleated RBC % (auto) 0.0 Sodium Potassium Chloride Carbon Dioxide Anion Gap BUN Creatinine Estim Creat Clear Calc Estimated GFR Random Glucose Estimat Average Glucose Hemoglobin A1c % Calcium Total Bilirubin AST ALT Alkaline Phosphatase Total Protein Albumin Triglycerides Cholesterol LDL Cholesterol, Calc HDL Cholesterol Vitamin B12 Folate TSH Urine Color Urine Appearance Urine pH Ur Specific [place] Urine Protein Urine Glucose (UA) Urine Ketones Urine Blood Urine Nitrite Ur Leukocyte Esterase Urine RBC Urine WBC Ur Squamous Epith Cells Urine Bacteria Hyaline Casts Granular Casts C. difficile Tox B Gene DS: Summary Hospital Course Hospital Course: Mrs. Ellis is an 84 year-old woman who was brought via EMS after 911 was called by her neighbor as pt had not answered the door or the phone and she was found on the floor. Pt apparently has been reporting that she is seeing a man and at times children. She does not go to her PCP regularly. She lives alone that there was concern in terms of her ability to care for herself. In the ED, WBC was elevated. No overt signs of infection. Repeat CBC showed normalized WBC. Serum bicarb was low 20, BUN elevated 27 with a normal creatinine. AST elevated 37. TSH was normal. Urinalysis was positive for protein, RBCs, negative for nitrates and leukocyte esterase. Urine microscopic revealed greater than 20 RBCs, 0-5 WBCs, 3-5 squamous cells with no bacteria. On the unit, pt presents as cooperative, slightly irritable. She is not able to remember exact events that led to her coming to the hospital and thus confabulates. She reports her daughter brought her to the hospital, when daughter was in [place] and just came few days ago. She reports she had seen a man and children at her house and that she had asked them to leave. She denies seeing them here on the unit. She reports she is mostly at home and has not left since beginning of the pandemic. She denies symptoms of depression or anxiety. She denies anxious mood. No overt psychosis or delusional content noted. HOSPITAL COURSE On the unit, pt was admitted on a sect 12b. She presented as cooperative with slightly irritable edge. it was evident that she had difficulty retaining information and as days went by her ability to recall events that led to this hospitalization was more impaired. She was found to confabulate. Her orientation was impaired in terms of orientation to month. Her visual impairments did not allow for completion of MOCA. But she was able to complete ACL which she scored 3.6 showing severe cognitive impairments and functional cognition. In terms of visual hallucination of men and children she had seen, I do suspect this may be related to vision loss. No signs of delusional content noted. No signs of delirium. No aggression towards self or others. 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 No significant motor symptoms noted to suggest LBD, but it could be a possibility- especially if visual hallu cinations continue even if sight is repair after cataract surgery. At this point, pt is also declining to follow up with ophtamology. Concern in terms of cognitive impairments and findings were discussed with pt's daughter and pt but both agreed that pt should return back home with additional supports. She does not wonder, often at home. She was seen by PT recommended STR, but both daughter and patient declined. Pt declined referral for psychiatry mostly to follow up on psychiatric symptoms secondary to dementia, including visual hallucinations. Time spent discussing smoking cessation with patient: 3 to 10 minutes Status at Discharge Cognitive/behavioral status at discharge: Pt with brighter, non labile affect. No SI/HI. No overt psychosis or delusional content. Sleeping and eating well. Functional status at discharge: wheelchair bound Overall status at discharge: patient is back to baseline (baseline is severely impaired due to dementia.) Time Spent with Patient Time attestation: Total time managing care of this patient today _35___ minutes. Time spent: Greater than 30 minutes Discharge Plan Discharge Anticipated Discharge Date/Time: 12/22/24 07:59 Patient Disposition: Home, Self-Care Discharge Diagnosis: Major Neurocognitive Disorder Referrals: [facility] [Other] - 12/22/24 (Your services of homemaking, home delivered meals, and firewall security engineer will restart on day of discharge. Your social work case manager Paris Davey will follow up with you and will schedule the home visit for nursing assessment for personal care hours. Please call Paris at [phone] ext [phone] if you have any questions related to services. ) [facility] [Other] - 12/24/24 (Referral for medication teaching and physical therapy placed. Please be available for call and visit from visiting nurses once you get home. ) Jenelle Moreno MD [Primary Care Provider] - 1 Week (Appointment request made with your PCP. The office will call you directly with the appointment and time following discharge. ) Discharge Medications: New albuterol sulfate [Ventolin HFA] 90 mcg/actuation Hfa Aerosol Inhaler 2 puff inhalation Q6H PRN (Reason: for wheezing) Qty: 6.7 0RF fluticasone furoate-vilanterol [Breo Ellipta] 100-25 mcg/dose Blister With Device 1 inh inhalation DAILY Qty: 60 0RF trazodone 50 mg Tablet 50 mg PO BEDTIME PRN (Reason: Insomnia) Qty: 30 0RF escitalopram oxalate 5 mg Tablet 5 mg PO DAILY Qty: 30 0RF cholecalciferol (vitamin D3) 25 mcg (1,000 unit) Tablet 25 mcg PO DAILY Qty: 30 0RF Discontinued albuterol sulfate [Ventolin HFA] 90 mcg/actuation HFA aerosol inhaler 2 puff PO Q6H PRN (Reason: for wheezing) 30 Days Qty: 18 1RF cholecalciferol (vitamin D3) 25 mcg (1,000 unit) capsule 25 mcg PO DAILY 90 Days Qty: 90 1RF fluticasone furoate-vilanterol [Breo Ellipta] 100-25 mcg/dose blister with device 1 ea INHALATION DAILY citalopram 10 mg tablet 10 mg PO DAILY PRN (Reason: Anxiety) Discharge Orders: Discharge Order (Routine); Ordered 12/22/24 Ordered By: Kavitha Ramírez Diet: Regular diet Activity on Discharge: Use cane or walker Stand Alone Forms: Patient Portal Discharge page Print Language: [place] Care Plan Goals: 1. Maintain mood 2. No SI/HI 3. underlying cognitive impairments- requires more assistance at home Health Concerns: Follow up with PCP Plan of Treatment: 1. Take medications as prescribed 2. Go to nearest ED or call 911 in event of emergency Assessment: Pt with brighter affect, non labile. No SI/HI. No VH/AH. Sleeping well. No behavioral concerns. Discharge Date/Time: 12/22/24 09:40
[2024-12-22] MEDS: Cholecalciferol (Vitamin D3) 25 MCG TABLET PO (08:32)
[2024-12-22] MEDS: Nystatin Powder 15 GM BOTTLE 1 APPL TOPICAL (08:33)
[2024-12-22] MEDS: Albuterol Sulfate 90 MCG 8 GM INHALER 2 PUFF INHALE (08:33)
[2024-12-22] MEDS: Fluticasone/Vilanterol 100/25 BLST.W.DEV 1 PUFF INHALE (08:36)
--- NOTE | 2024-12-22 09:29 | P.PNPSI_ITS ---
Subjective Subjective Reason For Visit: visual hallucinations, poor appetite, urine smell Diagnostics Vital Signs (24Hr): Vital Signs - 24 hr 12/21/24 20:00 12/22/24 07:55 Temperature 97 F 98.2 F Pulse Rate 72 82 Respiratory Rate 17 18 Blood Pressure 151/69 H 178/72 H Pulse Oximetry 95 96 Oxygen Delivery Method Room Air Room Air BMI result Body Mass Index 25.5 Labs 12/21/24 14:14 12/19/24 18:02 Labs: Laboratory Results - last 48 hr 12/20/24 12/21/24 12/21/24 09:57 07:33 14:14 WBC 9.2 RBC 4.05 L Hgb 12.1 Hct 35.5 L MCV 87.7 MCH 29.9 MCHC 34.1 RDW 14.4 Plt Count 303 MPV 10.1 Immature Gran % (Auto) 0.4 Neut % (Auto) 70.6 Lymph % (Auto) 11.9 L [place] % (Auto) 11.5 H Eos % (Auto) 4.3 H Baso % (Auto) 1.3 Lymph # (Auto) 1.1 L [place] # (Auto) 1.1 Eos # (Auto) 0.4 Baso # (Auto) 0.1 Abs Immat Gran (auto) 0.04 H Absolute Neuts (auto) 6.5 Absolute Nucleated RBC 0.000 Nucleated RBC % (auto) 0.0 Estimat Average Glucose 97 Hemoglobin A1c % 5.0 Triglycerides 76 Cholesterol 162 LDL Cholesterol, Calc 97 HDL Cholesterol 50 Vitamin B12 900 Folate 9.3 TSH 1.04 Medications Medications Current Medications Acetaminophen (Acetaminophen 325 Mg Tablet) 650 mg PO Q6H PRN PRN Reason: Headache/Pain, Scale 1-10 Al Hydroxide/Mg Hydroxide (Magnesium Hydrox/Alum Hydrox 30 Ml Oral.Susp) 30 ml PO Q6H PRN PRN Reason: Heartburn/Nausea Albuterol Sulfate (Albuterol Sulfate 90 Mcg 8 Gm Inhaler) 2 puff INHALE Q6H PRN PRN Reason: for wheezing Last Admin: 12/22/24 08:33 Dose: 2 puff Escitalopram Oxalate (Escitalopram Oxalate 5 Mg Tablet) 5 mg PO DAILY PRN PRN Reason: Anxiety Last Admin: 12/21/24 01:26 Dose: 5 mg Fluticasone/Vilanterol (Fluticasone/Vilanterol 100/25 Blst.W.Dev) 1 puff INHALE DAILY ADRIENNE Last Admin: 12/22/24 08:36 Dose: 1 puff Magnesium Hydroxide (Milk Of Magnesia 30 Ml Oral.Susp) 30 ml PO DAILY PRN PRN Reason: Constipation Nystatin (Nystatin Powder 15 Gm Bottle) 1 appl TOPICAL BID ADRIENNE; Protocol Last Admin: 12/22/24 08:33 Dose: 1 appl Trazodone HCl (Trazodone Hcl 50 Mg Tablet) 50 mg PO BEDTIME MRX1 PRN PRN Reason: Insomnia Last Admin: 12/21/24 21:39 Dose: 50 mg Vitamin D (Cholecalciferol (Vitamin D3) 25 Mcg Tablet) 25 mcg PO DAILY ADRIENNE Last Admin: 12/22/24 08:32 Dose: 25 mcg Allergies Allergies Allergy/AdvReac Type Severity Reaction Status Date / Time No Known Allergies Allergy Verified 12/18/24 14:53 Assessment & Plan Assessment & Plan (1) Major neurocognitive disorder: Status: Acute Code(s): F03.90 - Unspecified dementia, unspecified severity, without behavioral disturbance, psychotic disturbance, mood disturbance, and anxiety Plan Mrs. Ellis is an 84 year-old woman who was brought to [facility] ED due to fall. She is not able to remember exact events leading to this admission. She has also been reporting seeing a man and children standing in her house. She denies hearing them talk. Others have not seen other people there. Pt lives alone and main concern has been her ability to care for herself. She does have a neighbor that comes and helps with groceries and picking up medications and paying bills. Pt noted to be almost blind. She does have hx of cataracts but refuses to go see dye automation operator. She does not present with overt signs of psychosis nor delusional content. I so suspect that visual hallucinations may be related to losing sight. In terms of her cognitive, pending formal MOCA and ACL but it is clear that she does have problems with orientation and retaining information evidenced by the fact that she is not able to remember who brought her to the hospital and in what condition was she found (felt but was alert). She is confused as to why she was brought to the hospital in the first place. She does not appeared as delirious, therefore, cognitive impairments noted are related to underlying major neurocognitive disorder. PLAN 1. Admit to S1, Sect 12b, 5 minutes checks 2. consult PT- unsteady gait 3. may consider antipsychotic if she is noted to have psychosis. 4. OT- MOCA/ACL 5. aftercare planning. Time Spent With Patient Time: Total time managing care of this patient today ____ minutes.
== END 2024-12-22 09:40 | disposition home or self-care (01) | DRG 884 ==
LOC: HO.ED 17:34 → HO.PGERI 12-19 15:39
PROVIDERS: Emergency Medicine; Psychiatry & Neurology Psychiatry; Admitting Provider Social Worker; Emergency Provider Emergency Medicine Emergency Medical Services; PCP Internal Medicine; Visit Provider Social Worker
DX: F03.90 Unspecified dementia, unspecified severity, without behavioral disturbance, psychotic disturbance, mood disturbance, and anxiety (principal); J44.9 Chronic obstructive pulmonary disease, unspecified; Z79.51 Long term (current) use of inhaled steroids; Z79.899 Other long term (current) drug therapy
CPT/HCPCS: 36415; 70450; 80053; 80061; 81001; 82607; 82746; 83036; 84443; 85025; 87493; 93005; 97161; 99285; S9485

== ENCOUNTER → 2024-12-18 15:15 | Outpatient (BNV) | payer MEDICARE, SELFPAY | PROVIDERS: Emergency Provider Emergency Medicine Emergency Medical Services; PCP Internal Medicine; Visit Provider Radiology Diagnostic Radiology | DX: R41.82 Altered mental status, unspecified (principal) | CPT/HCPCS: 70450 ==

== ENCOUNTER → 2024-12-19 14:26 | Outpatient (BNV) | payer MEDICARE, SELFPAY | PROVIDERS: Admitting Provider Social Worker; Emergency Provider Emergency Medicine Emergency Medical Services; PCP Internal Medicine; Visit Provider Internal Medicine Cardiovascular Disease | DX: R44.1 Visual hallucinations (principal) | CPT/HCPCS: 93010 ==

== ENCOUNTER → 2024-12-19 15:13 | Outpatient (BNV) | payer MEDICARE, SELFPAY | PROVIDERS: Admitting Provider Social Worker; Emergency Provider Emergency Medicine Emergency Medical Services; PCP Internal Medicine; Visit Provider Social Worker | DX: F03.90 Unspecified dementia, unspecified severity, without behavioral disturbance, psychotic disturbance, mood disturbance, and anxiety (principal) | CPT/HCPCS: 90792; 99239; 99499 ==

== ENCOUNTER → 2025-01-17 23:59 | Outpatient (BNV) | payer MEDICARE, SELFPAY | PROVIDERS: PCP Internal Medicine; Visit Provider Internal Medicine | DX: J45.20 Mild intermittent asthma, uncomplicated (principal); F41.9 Anxiety disorder, unspecified | CPT/HCPCS: G0180 ==

== ENCOUNTER 2025-07-19 10:54 | Outpatient (AMB) | payer MEDICARE, SELFPAY ==
[2025-07-19 11:11] VITALS: BP 140/70; PULSE 82; RESP 18; TEMP 36.2; O2SAT 93; BMI 27.6
--- NOTE | 2025-07-19 11:20 | AM.OFFVISMDC ---
Intake Vital Signs 07/19/25 11:11 07/19/25 11:32 Height 4 ft 11 in Weight 136 lb 14.513 oz BMI 27.6 27.6 BP 140/70 H Blood Pressure Location Lt brachial Position Sitting Respiration 18 Pulse 82 Pulse Source Pulse Oximeter Temp 97.1 F Temp Source Temporal Artery Scan Pulse Oximetry (%) 93 Oxygen Delivery Method Room Air Intake Visit Reasons: AWV [place] Required: No Accompanied by: ENVELOPE FOLDING MACHINE OPERATOR Allergies No Known Allergies Allergy (Verified 07/19/25 11:37) Medication List - Last Reconciled 07/19/25 by Jenelle Callejas MD albuterol sulfate 90 mcg/actuation (Ventolin HFA) 2 puffs inhalation Q6H PRN cholecalciferol (vitamin D3) 25 mcg PO DAILY escitalopram oxalate 5 mg PO DAILY 90 days fluticasone furoate-vilanterol 100-25 mcg/dose (Breo Ellipta) 1 inh inhalation DAILY [shower chair As directed] trazodone 50 mg PO BEDTIME PRN 90 days HPI HPI Comments History of Present Illness Details PPP handed to patient. [place] of care reviewed and updated. Patient walk with a walker. She does not want to complete the mini-mental. 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 Accompanied by ENVELOPE FOLDING MACHINE OPERATOR. Has pneumonia vaccine. No need for colonoscopy, Pap smears or mammograms. She has COPD and major neurocognitive disorder. [facility] Medical History Hypovitaminosis D COPD (chronic obstructive pulmonary disease) Anxiety Surgical History History of cholecystectomy Family History Mother No problems noted. Father No problems noted. Social History Household Members: None Household Members Other:: patient lives by self with friends coming to help her Housing: Apartment Do you presently have visiting nurse or other home services: No (frinds) Alcohol intake: never Patient Tobacco Use Status: Never used Tobacco Tobacco use type: Cigarette e-Cigarette/Vaping Use: Never Used Second Hand Smoke Exposure: No service: No Current occupational status: disabled Sexual orientation: Straight/Heterosexual Cognitive needs: Yes Hearing needs: No Vision needs: No Questionnaire Medicare Wellness Checkup What is your age?: 79 or older What gender do you identify with?: female During the past 4 weeks, how much have you been bothered by emotional problems such as feeling anxious, depressed, irritable, sad or downhearted, and blue?: moderately During the past 4 weeks, has your physical & emotional health limited your social activities with family, friends, neighbors, or groups?: extremely During the past 4 weeks, how much bodily pain have you generally had?: very mild pain During the past 4 weeks, was someone available to help you if you needed & wanted help?: yes, as much as I wanted During the past 4 weeks, what was the hardest physical activity you could do for at least 2 minutes?: very light Can you get to places out of walking distance without help? (For eg., can you travel alone on buses, taxis or drive your car?): No Can you go shopping for groceries or clothes without someone's help?: No Can you prepare your own meals?: Yes Can you do your housework without help?: No Because of any health problems, do you need the help of another person with your personal care needs such as eating, bathing, dressing or getting around the house?: Yes Can you handle your own money without help?: Yes During the past 4 weeks, how would you rate your health in general?: fair During the past 4 weeks how have things been going for you?: good & bad parts about equal Are you having difficulties driving your car?: not applicable, I don't use a car Do you always fasten your seat belt when you are in a car?: yes, usually During past 4 weeks, have you been bothered by the following: never: Sexual problems?, seldom: Falling or dizzy when standing up and Trouble eating well? and sometimes: Teeth or denture problems?, Problems using the telephone? and Tiredness or fatigue? Have you fallen 2 or more times in the past year?: Yes Are you afraid of falling?: Yes Are you a smoker?: no During the past 4 weeks, how many drinks of wine, beer, or other alcoholic beverages did you have?: no alcohol at all Do you exercise for about 20 minutes 3 or more times a week?: no, I usually do not exercise this much Have you been given information to help with the following?: yes: Hazards in your house that might hurt you? and yes: Keeping track of your medications? How often do you have trouble taking medicines the way you have been told to take them?: I always take medicine as prescribed How confident are you that you can control & manage most of your health problems?: somewhat confident What is your race?: White Mini Mental State Exam (MMSE) Orientation What is the (year) (season) (date) (day) (month)?: year, day and month Where are we (state) (county) (town or city) (hospital) (floor)?: state, county, town or city and hospital/clinic Registration Name of 3 unrelated objects clearly and slowly, then ask patient to repeat all 3 of them. (1st repeat determines score. Make sure they can repeat all three): object 1, object 2 and object 3 Attention & Calculation (CHOOSE ONE) Spell WORLD backwards (DLROW): 3 letters Recall Ask patient to repeat the 3 items from question #3.: object 1, object 2 and object 3 Language Show patient a wristwatch & ask what it is. Repeat for pencil.: watch and pencil Ask the patient to repeat the phrase 'No ifs, ands, or buts' after you.: correct Ask the patient to 'take a piece of paper with their right hand' 'fold paper in half' 'place paper on floor': take paper in right hand, fold paper in half and place paper on floor Score Score: 22 PHQ-9 Over the last 2 weeks, how often have you been bothered by any of the following problems? 1. Little interest or pleasure in doing things: several days 2. Feeling down, depressed, or hopeless: not at all 3. Trouble falling or staying asleep, or sleeping too much: nearly every day 4. Feeling tired or having little energy: not at all 5. Poor appetite or overeating: nearly every day 6. Feeling bad about yourself - or that you are a failure or have let yourself or your family down: not at all 7. Trouble concentrating on things, such as reading the newspaper or watching television: not at all 8. Moving or speaking so slowly that other people could have noticed. Or the opposite - being so fidgety or restless that you have been moving around a lot more than usual: not at all 9. Thoughts that you would be better off or of hurting yourself in some way: not at all Total score: 7 Depression Screening Interpretation: Positive Depression Screening Follow-up: Existing condition and Follow-up Visit Requested Depression Screening Done: Yes 04134 - PHQ-9 Billing: Yes Source: Developed by Drs. Fermin James, Naz Pena, Bud Mittal and colleagues, with an educational sarbjit from [employer]. Review of Systems Const All systems reviewed & are unremarkable except as noted in HPI and below Card Denies chest pain at rest, Denies chest pain with activity, Denies edema, Denies irregular heart rhythm, Denies claudication, Denies dyspnea, Denies dyspnea on exertion, Denies orthopnea, Denies paroxysmal nocturnal dyspnea and Denies slow heart rate Resp Denies cough, Denies dyspnea and Denies dyspnea on exertion GI Denies abdominal pain, Denies change in bowel habits, Denies excessive flatus, Denies nausea and Denies vomiting Physical Exam Vital Signs: Last Vital Signs Temp 97.1 F 07/19/25 11:11 Pulse 82 07/19/25 11:11 Resp 18 07/19/25 11:11 BP 140/70 H 07/19/25 11:11 Pulse Ox 93 07/19/25 11:11 Oxygen Delivery Method Room Air 07/19/25 11:11 BMI result Body Mass Index 27.6 Resp Effort & Inspection: normal respiratory effort Auscultation: clear to auscultation bilaterally Cardio Jugular venous distension: no JVD Rate: regular rate Rhythm: regular rhythm Heart sounds: S1 normal heart sound present and S2 normal heart sound present Neuro Romberg Test: Negative Extrem General: Yes full ROM Assessment & Plan Assessment & Plan (1) Encounter for Medicare annual wellness exam: Code(s): Z00.00 - Encounter for general adult medical examination without abnormal findings (2) COPD (chronic obstructive pulmonary disease): Code(s): J44.9 - Chronic obstructive pulmonary disease, unspecified Qualifiers: COPD type: unspecified COPD Qualified Code(s): J44.9 - Chronic obstructive pulmonary disease, unspecified (3) Major neurocognitive disorder: Code(s): F03.90 - Unspecified dementia, unspecified severity, without behavioral disturbance, psychotic disturbance, mood disturbance, and anxiety Plan Continue current meds. Quality Reporting (2019) Depression/Bipolar (159/160/161/177) PHQ-9: Total score: 7 Coding Level of Care Code Medicare Subsequent (G0439) Diagnoses Encounter for Medicare annual wellness exam Z00.00 Chronic obstructive pulmonary disease, unspecified COPD type J44.9 COPD type: unspecified COPD Major neurocognitive disorder F03.90 Additional Codes PHQ-9 - 09211 - PHQ-9 Billing: Yes ([id number]) Time Spent (min) 34 Advance Care Planning Advance Care Planning discussion: Exists, not on file Date of discussion: 07/19/25 Forms completed: Health Care Proxy
[2025-07-19 11:32] VITALS: BMI 27.6
== END 2025-07-19 11:58 | disposition home or self-care (01) ==
LOC: HO.HMCH 10:55
PROVIDERS: PCP Internal Medicine; Visit Provider Internal Medicine
DX: Z00.00 Encounter for general adult medical examination without abnormal findings (principal); J44.9 Chronic obstructive pulmonary disease, unspecified; F03.90 Unspecified dementia, unspecified severity, without behavioral disturbance, psychotic disturbance, mood disturbance, and anxiety

== ENCOUNTER → 2025-07-19 10:54 | Outpatient (BNVA) | payer MEDICARE, SELFPAY | PROVIDERS: PCP Internal Medicine; Visit Provider Internal Medicine | DX: Z00.00 Encounter for general adult medical examination without abnormal findings (principal); F41.9 Anxiety disorder, unspecified; F32.A Depression, unspecified; J44.9 Chronic obstructive pulmonary disease, unspecified; F03.90 Unspecified dementia, unspecified severity, without behavioral disturbance, psychotic disturbance, mood disturbance, and anxiety; Z79.899 Other long term (current) drug therapy | CPT/HCPCS: 96127 ==

== ENCOUNTER → 2025-10-14 14:58 | Outpatient (BNV) | payer MEDICARE, SELFPAY | PROVIDERS: Emergency Provider Emergency Medicine; Visit Provider Radiology Diagnostic Radiology | DX: R90.82 White matter disease, unspecified (principal); S42.212A Unspecified displaced fracture of surgical neck of left humerus, initial encounter for closed fracture; M11.222 Other chondrocalcinosis, left elbow; Z04.3 Encounter for examination and observation following other accident | CPT/HCPCS: 70450; 71045; 73030; 73080 ==

== ENCOUNTER → 2025-10-14 14:58 | Outpatient (BNV) | payer MEDICARE, SELFPAY | PROVIDERS: Emergency Provider Emergency Medicine; Visit Provider Internal Medicine Cardiovascular Disease | DX: R41.82 Altered mental status, unspecified (principal) | CPT/HCPCS: 93010 ==

== ENCOUNTER → 2025-10-21 00:10 | Outpatient (BNV) | payer MEDICARE, SELFPAY | PROVIDERS: Emergency Provider Emergency Medicine; PCP Internal Medicine; Visit Provider Radiology Diagnostic Radiology | DX: S42.212A Unspecified displaced fracture of surgical neck of left humerus, initial encounter for closed fracture (principal) | CPT/HCPCS: 71045 ==

== ENCOUNTER → 2025-10-22 13:09 | Outpatient (BNV) | payer MEDICARE, SELFPAY | PROVIDERS: Emergency Provider Emergency Medicine; PCP Internal Medicine; Visit Provider Radiology Diagnostic Radiology | DX: J43.2 Centrilobular emphysema (principal); J90 Pleural effusion, not elsewhere classified; S42.202A Unspecified fracture of upper end of left humerus, initial encounter for closed fracture | CPT/HCPCS: 71275 ==

== ENCOUNTER 2025-10-22 17:30 | Outpatient (BNV) | payer MEDICARE, SELFPAY | END 2025-10-23 13:23 | PROVIDERS: Admitting Provider Student in an Organized Health Care Education/Training Program; Emergency Provider Emergency Medicine; PCP Internal Medicine; Visit Provider Radiology Diagnostic Radiology | DX: J84.9 Interstitial pulmonary disease, unspecified (principal) | CPT/HCPCS: 71045 ==

== ENCOUNTER 2025-10-22 17:30 | Outpatient (BNV) | payer MEDICARE, SELFPAY | END 2025-10-23 07:30 | PROVIDERS: Admitting Provider Student in an Organized Health Care Education/Training Program; Emergency Provider Emergency Medicine; PCP Internal Medicine; Visit Provider Internal Medicine Cardiovascular Disease | DX: I48.91 Unspecified atrial fibrillation (principal) | CPT/HCPCS: 93010; 93306 ==

== ENCOUNTER → 2025-10-22 17:30 | Outpatient (BNV) | payer MEDICARE, SELFPAY | PROVIDERS: Admitting Provider Student in an Organized Health Care Education/Training Program; Emergency Provider Emergency Medicine; PCP Internal Medicine; Visit Provider Student in an Organized Health Care Education/Training Program | DX: I21.4 Non-ST elevation (NSTEMI) myocardial infarction (principal); R62.7 Adult failure to thrive | CPT/HCPCS: 99222; 99232; 99233; 99499 ==

== ENCOUNTER → 2025-10-22 17:30 | Outpatient (BNV) | payer MEDICARE, SELFPAY | PROVIDERS: Admitting Provider Student in an Organized Health Care Education/Training Program; Emergency Provider Emergency Medicine; PCP Internal Medicine; Visit Provider Internal Medicine Cardiovascular Disease | DX: I21.4 Non-ST elevation (NSTEMI) myocardial infarction (principal); R94.31 Abnormal electrocardiogram [ECG] [EKG]; R07.9 Chest pain, unspecified | CPT/HCPCS: 93010; 99223 ==